=== PATIENT | male | born 1950 | race Caucasian/White ===

== ENCOUNTER 2017-05-06 14:25 | Outpatient (CLI) | payer MEDICARE, BC | END 2017-05-06 14:26 | disposition home or self-care (01) | LOC: SC 14:25 | PROVIDERS: ATTEND Internal Medicine Pulmonary Disease | DX: G47.33 Obstructive sleep apnea (adult) (pediatric) (principal) | CPT/HCPCS: 99203; G0463; 99212 ==

== ENCOUNTER 2017-06-30 09:28 | Outpatient (CLI) | payer MEDICARE, BC | END 2017-06-30 09:29 | disposition home or self-care (01) | LOC: SC 09:28 | PROVIDERS: ATTEND Internal Medicine Pulmonary Disease | DX: G47.33 Obstructive sleep apnea (adult) (pediatric) (principal) | CPT/HCPCS: 99213; G0463; 99212 ==

== ENCOUNTER 2017-08-05 10:12 | Outpatient (CLI) | payer MEDICARE, BC | END 2017-08-05 10:13 | disposition home or self-care (01) | LOC: SC 10:12 | PROVIDERS: ATTEND Internal Medicine Pulmonary Disease | DX: G47.33 Obstructive sleep apnea (adult) (pediatric) (principal) | CPT/HCPCS: 99213; G0463; 99212 ==

== ENCOUNTER 2018-03-09 14:06 | Outpatient (CLI) | payer MEDICARE, BC | END 2018-03-09 14:07 | disposition home or self-care (01) | LOC: SC 14:06 | PROVIDERS: ATTEND Internal Medicine Pulmonary Disease | DX: G47.33 Obstructive sleep apnea (adult) (pediatric) (principal) | CPT/HCPCS: 99213; G0463; 99212 ==

== ENCOUNTER 2019-03-17 14:07 | Outpatient (CLI) | payer MEDICARE, OTHER ==
[2019-03-17 15:09] VITALS: BP 134/66
--- NOTE | 2019-03-17 15:09 | SLEEP CARE CONSULTATION ---
Information from patient questionnaire entered by Anca Wharton. I have reviewed and concur with the information entered by Anca Wharton. This document represents the service I personally performed and the decisions made by me, Rhiannon Avila, RN, MSN, WILDLIFE BIOLOGY TECHNICIAN. History of Present Illness Previous diagnosis: Very Severe, Obstructive Sleep Apnea-Hypopnea Syndrome AHI: 61.2 Reason for follow up: annual (last seen 2019) Equipment type: CPAP Equipment obtained from: [employer] (getting equipment well now) Mask style: Nasal (Dreamwear) Mask brand: Respironics Backup mask available: Yes Last cushion change: 2 weeks ago CPAP Compliance Data - Data Reviewed with Patient Average duration of nightly device use: 9.3 Compliance rate %: 100 (180 days) Current pressure setting (cmH2O): 11 Humidity settin Heated hose settin Average residual AHI: 6.9 Central apnea: 1.7 Obstructive apnea: 4.1 Hypopnea: 1.1 Average large leak: 38 min 48 sec Subjective Patient concerns: reports: nasal congestion (chronic and can notice effect on CPAP use ). denies: aerophagia, mask discomfort, air blowing in eyes, mask leak noise, condensation in mask/hose, dry mouth, nose, throat, epistaxis Observed to snore while using device: No Current pressure setting perceived as: comfortable On therapy, patient: reports: sleeping better, awakening more refreshed, being more awake and alert during the day, more rested overall. denies: drowsiness while driving Initial [place] Sleepiness Scale score: 7 Current [place] Sleepiness Scale score: 5 Allergies and Home Medications Known drug allergies: No Home medication list reviewed: Yes (see changes) Review of Systems Review of systems same as previous: No (menieres disease) Physical Exam Blood Pressure: 134/66 Heart Rate: 72 O2 Saturation: 96 Height: 5 ft 8 in Weight: 222 lb 6.4 oz Weight change since last visit: lost 6 pounds Body Mass Index: 33.7 BMI Classification: Obesity Class 1 Impression and Plan 1. Obstructive Sleep Apnea-Hypopnea Syndrome, severe , with good treatment compliance and slightly elevated residual AHI on current pressure of [id number].On CPAP therapy, the patient has better sleep quality and is more rested overall. Thus I will change him to autoCPAP pressure at [id number] to reduce residual AHI. He is to contact me if the pressure change is uncomfortable. He has also lost 6 pounds. I discussed how significant weight loss will reduce his apnea and CPAP pressure requirements as well as health risks. Patient stated he is not planning on losing significant weight and is aware how to lose weight and health risks of obesity. Nasal congestion can be reduced with increasing the CPAP humidity as shown on sample device. The heated hose can be adjusted higher if condensation with higher humidity setting. Saline nasal spray sample was also given to use prior to CPAP to clear nasal secretions and wash off any nasal aneesh rgens to facilitate nasal breathing. In addition, a steamy shower before bed will often assist nasal drainage. Patient's apnea severity and rationale for treatment to reduce apnea, improve sleep quality and reduce cardiovascular and cerebrovascular events was reviewed. I also reviewed the benefit of consistent device use of CPAP for hypertension. * Change CPAP pressure to 12-14 cmH2O * Implement methods to reduce nasal congestion. * Notify me if snoring with mask or feeling that the pressure is too much or too little * Attempt to lose weight * Call this office if any problems using CPAP * Return for follow up in 1 year , or sooner if concerns arise Time Spent with Patient (minutes): 27 I spent 100% of this visit face to face with the patient with greater than 50% of this was spent time counseling the patient and coordination of care.
== END 2019-03-17 14:08 | disposition home or self-care (01) ==
LOC: SC 14:07
PROVIDERS: ATTEND Nurse Practitioner Family
DX: G47.33 Obstructive sleep apnea (adult) (pediatric) (principal); E66.9 Obesity, unspecified; Z68.33 Body mass index [BMI] 33.0-33.9, adult
CPT/HCPCS: 99214; G0463; 99212

== ENCOUNTER 2020-03-20 13:45 | Outpatient (CLI) | payer MEDICARE, OTHER ==
--- NOTE | 2020-03-20 14:45 | SLEEP CARE CONSULTATION ---
Information from patient questionnaire entered by Terrell Velazquez. I have reviewed and concur with the information entered by Terrell Velazquez. This document represents the service I personally performed and the decisions made by me, Ramu Moreno MD, [facility]. History of Present Illness Service Date and Time: 03/20/2020 1345 Previous diagnosis: Very Severe, Obstructive Sleep Apnea-Hypopnea Syndrome AHI: 61.2 Reason for follow up: annual (Last seen 03/2019) Equipment type: CPAP Equipment obtained from: [employer] Mask style: Nasal pillows Year and Where: 2014 [facility] Type of Sleep Study: Polysomnography HPI additional information: HPI: Mr. Castro returns today to follow up on the nasal CPAP therapy. He was diagnosed to have severe obstructive sleep apnea-hypopnea syndrome. The patient wears a Respironics Dreamwear nasal cushion mask. He reports using the device nightly and all through the night. The compliance report shows usage in 178 nights out of the past 180 nights, averaging 9.6 hours a night. The > 4 hour compliance rate for the past 30 days is 98.9%. He complained of no particular problem with the device such as soreness on the face, dry nose, epistaxis, nasal congestion or headache. He thinks that the pressure of 12 14 cmH2O is comfortable. On the CPAP therapy he notices improvement in his sleep quality, and that he wakes up feeling fresher in the morning and more awake/alert during the day. His notices no snore at all. The average residual AHI is 7.4; and average time in large leak per day is 51 minutes. The 90th percentile pressure is 13.7 cmH2O. CPAP Compliance Data - Data Reviewed with Patient Average duration of nightly device use: 9 h 41 min Compliance rate %: 98.3 Current pressure setting (cmH2O): 12-14 Humidity settin Heated hose settin Average residual AHI: 7.4 Average large leak: 51 min 33 sec Subjective Patient concerns: reports: mask leak noise Initial [place] Sleepiness Scale score: 7 (in 2018) Current [place] Sleepiness Scale score: 4 Allergies and Home Medications Drug allergies reviewed: Yes Home medication list reviewed: Yes Review of Systems Review of systems same as previous: Yes Physical Exam Height: 5 ft 8 in Weight: 230 lb Body Mass Index: 34.9 BMI Classification: Obese Impression and Plan IMPRESSION: 1. Obstructive Sleep Apnea-Hypopnea Syndrome, severe (AHI was 59 in 2015), with the patient doing well on nasal CPAP therapy. He has excellent compliance and significant clinical improvement. The current pressure appears comfortable but slightly ineffective. His mask leaks slightly. Overall, he is very satisfied with treatment and plans to continue with it long-term. Because the residual AHI is still high, I will raise the pressure further to 12 17 cmH2O. PLAN: 1. autoCPAP raised to 12 - 17 cmH2O. 2. Try to lose weight 3. Try ResMed N30i nasal mask. 4. Return for a follow up in 2 months to recheck the residual AHI. If still high, a manual CPAP/BiPAP titration study will be ordered. Visit Type: In Office Time Spent with Patient (minutes): 20 Provider Statement: I spent 100% of the Face to Face Visit with the patient with greater than 50% spent counseling the patient and coordination of care.
== END 2020-03-20 13:46 | disposition home or self-care (01) ==
LOC: SC 13:45
PROVIDERS: ATTEND Internal Medicine Pulmonary Disease
DX: G47.33 Obstructive sleep apnea (adult) (pediatric) (principal); E66.9 Obesity, unspecified; Z68.34 Body mass index [BMI] 34.0-34.9, adult
CPT/HCPCS: 99213; G0463; 99212

== ENCOUNTER 2020-05-22 13:41 | Outpatient (CLI) | payer MEDICARE, OTHER ==
--- NOTE | 2020-05-22 16:32 | SLEEP CARE CONSULTATION ---
Information from patient questionnaire entered by Terrell Velazquez. I have reviewed and concur with the information entered by Terrell Velazquez. This document represents the service I personally performed and the decisions made by me, Ramu Moreno MD, [facility]. History of Present Illness Service Date and Time: 05/22/2020 1341 Previous diagnosis: Very Severe, Obstructive Sleep Apnea-Hypopnea Syndrome AHI: 61.2 Reason for follow up: other (2-month f/u - pressure change) Equipment type: CPAP Equipment obtained from: [employer] Mask style: Nasal pillows Year and Where: [address] [facility] HPI additional information: HPI: Mr. Castro returned today for follow up of nasal CPAP therapy. He was diagnosed to have severe obstructive sleep apnea-hypopnea syndrome. [facility] He now wears the Respironics DreamWear nasal cushion mask. He reports using the device nightly and all through the night. The compliance report shows usage in 60 nights out of the past 60 nights, averaging 8.7 hours a night. He complained of no particular problem with the device such as soreness on the face, dry nose, epistaxis, nasal congestion or headache. He thinks that the pressure of 12 - 17 cmH2O is comfortable (the was raised two months ago for elevated residual AHI). On the CPAP therapy he notices improvement in his sleep quality, and that he wakes up feeling fresher in the morning and more awake/alert during the day. The [place] Sleepiness Scal e score 0 (was 5). His notices no snore at all. The average residual AHI is 6.6 (was 7.4); and air leak, 21 minutes a night. CPAP Compliance Data - Data Reviewed with Patient Average duration of nightly device use: 8 h 45 sahil Compliance rate %: 100 Current pressure setting (cmH2O): 12-17 Humidity settin Heated hose settin Average residual AHI: 6.6 Average large leak: 21 min 48 sec Subjective Patient concerns: reports: mask leak noise, dry mouth, nose, throat Initial [place] Sleepiness Scale score: 7 (in 2013) Current [place] Sleepiness Scale score: 0 Allergies and Home Medications Drug allergies reviewed: Yes Home medication list reviewed: Yes Review of Systems Review of systems same as previous: Yes Physical Exam Height: 5 ft 8 in Weight: 231 lb Body Mass Index: 35.1 BMI Classification: Obese Impression and Plan IMPRESSION: 1. Obstructive Sleep Apnea-Hypopnea Syndrome, severe, with the patient doing well on nasal CPAP therapy. He continues to have excellent compliance and significant clinical improvement. The current pressure appears more effective and comfortable. Overall, he is very satisfied with treatment and plans to continue with it long-term. I will raise the pressure further. PLAN: 1. Increase autoCPAP to 13 - 19 cmH2O. 2. Try to lose weight 3. Try Respironics DreamWear nasal pillows and ResMed P30i nasal pillows, 4. Return in one year for follow up or earlier if there is any problem with the treatment. Follow up recommended for: Weight management Visit Type: In Office Time Spent with Patient (minutes): 20 Provider Statement: I spent 100% of the Face to Face Visit with the patient with greater than 50% spent counseling the patient and coordination of care.
== END 2020-05-22 13:42 | disposition home or self-care (01) ==
LOC: SC 13:41
PROVIDERS: ATTEND Internal Medicine Pulmonary Disease
DX: G47.33 Obstructive sleep apnea (adult) (pediatric) (principal); E66.9 Obesity, unspecified; Z68.35 Body mass index [BMI] 35.0-35.9, adult
CPT/HCPCS: 99213; G0463; 99212

== ENCOUNTER 2021-05-07 14:26 | Outpatient (CLI) | payer MEDICARE, OTHER ==
[2021-05-07 21:58] VITALS: BP 125/83
--- NOTE | 2021-05-07 21:58 | SLEEP CARE CONSULTATION ---
Information from patient questionnaire entered by Lavelle Lima MA. I have reviewed and concur with the information entered by Lavelle Lima MA. This document represents the service I personally performed and the decisions made by me, Ramu Moreno MD, [facility]. History of Present Illness Service Date and Time: 05/07/2021 1426 Previous diagnosis: Very Severe, Obstructive Sleep Apnea-Hypopnea Syndrome AHI: 61.2 Reason for follow up: annual (LAST SEEN 04/2020,) Equipment type: CPAP Equipment obtained from: [employer] Mask style: Nasal pillows Year and Where: 2017 and 2014 [facility] Type of Sleep Study: Polysomnography HPI additional information: Mr. Castro returns today to follow up on the nasal CPAP therapy. He was diagnosed to have severe obstructive sleep apnea-hypopnea syndrome. The patient wears a Respironics Dreamwear nasal cushion mask. He reports using the device nightly and all through the night. The compliance report shows usage in 120 nights out of the past 120 nights, averaging 9.6 hours a night. The > 4 hour compliance rate for the past 120 days is 99%. He complained of no particular problem with the device such as soreness on the face, dry nose, epistaxis, nasal congestion or headache. He thinks that the pressure of 13 - 19 cmH2O is comfortable. On the CPAP therapy he notices improvement in his sleep quality, and that he wakes up feeling fresher in the morning and more awake/alert during the day. His notices no snore at all. The average residual AHI is 7.7; and average time in large leak per day is 1.6 hours. The 90th percentile pressure is 15.2 cmH2O. Sleep Study - Results Type of Sleep Study: Polysomnography Year and Where: 2017 and 2014 [facility] CPAP Compliance Data - Data Reviewed with Patient Average duration of nightly device use: 9 HOURS 12 MINUTES Compliance rate %: 99.2 Current pressure setting (cmH2O): 13-19 Humidity settin Heated hose settin Average residual AHI: 7.7 Average large leak: 1 HOUR 38 MINUTES Subjective Patient concerns: reports: mask leak noise, nasal congestion, dry mouth, nose, throat Current pressure setting perceived as: comfortable Initial [place] Sleepiness Scale score: 7 (in 2013) Current [place] Sleepiness Scale score: 0 (2021) Allergies and Home Medications Drug allergies reviewed: Yes Home medication list reviewed: Yes Allergy and home medication list: Allergies No Known Drug Allergies Allergy (Unverified 04/27/15 08:34) Review of Systems Review of systems same as previous: Yes Physical Exam Vital signs obtained and entered by: STEVEN HAMPTON Blood Pressure: 125/83 (RIGHT, PULSE 67, RESP 18, ) Cuff size: wrist Heart Rate: 64 O2 Saturation: 98 (PAPER MASK) Height: 5 ft 8 in Weight: 216 lb Body Mass Index: 32.8 BMI Classification: Obese Impression and Plan IMPRESSION: 1. Obstructive Sleep Apnea-Hypopnea Syndrome, severe (AHI was 59 in 2014), with the patient doing well on nasal CPAP therapy. He has excellent compliance and significant clinical improvement. The current pressure appears comfortable but still slightly ineffective. His mask leaks more now. He has registered his DreamStation device with its client analyst for replacement. He would like to be evaluated for the Inspire therapy (hypoglossal nerve stimulation). PLAN: 1. Continue with autoCPAP s cmH2O.et at 13 19 cmH2O. 2. The patient was recommended to see Dr. Brody Pereyra (ENT) in [place] regarding the Inspire Therapy. 3. Return for follow up in a year or earlier if there is any problem or if he decides to have the procedure. Follow up with Sleep Care in: 1 year Follow up with: Other (ENT) Visit Type: In Office Time Spent with Patient (minutes): 15 Provider Statement: I spent 100% of the Face to Face Visit with the patient with greater than 50% spent counseling the patient and coordination of care.
== END 2021-05-07 14:27 | disposition home or self-care (01) ==
LOC: SC 14:26
PROVIDERS: ATTEND Internal Medicine Pulmonary Disease
DX: G47.33 Obstructive sleep apnea (adult) (pediatric) (principal); E66.9 Obesity, unspecified; Z68.32 Body mass index [BMI] 32.0-32.9, adult
CPT/HCPCS: 99212; G0463

== ENCOUNTER 2021-12-11 14:17 | Outpatient (CLI) | payer MEDICARE, OTHER ==
[2021-12-11 15:01] VITALS: BP 132/88
--- NOTE | 2021-12-11 15:01 | SLEEP CARE CONSULTATION ---
Information from patient questionnaire entered by Matty Urias. I have reviewed and concur with the information entered by Matty Urias. This document represents the service I personally performed and the decisions made by me, Blanquita Baldwin ARNP. History of Present Illness Service Date and Time: 12/11/2021 1417 Previous diagnosis: Very Severe, Obstructive Sleep Apnea-Hypopnea Syndrome AHI: 61.2 Reason for follow up: other (7 MONTH F/U, LAST SEEN 05/22) Equipment type: CPAP (DREAMSTATION) Equipment obtained from: [employer] Mask style: Nasal pillows Backup mask available: Yes (old mask) Prior sleep studies: Yes Year and Where: [address] [facility] Type of Sleep Study: Polysomnography HPI additional information: MARII SCHREIBER was diagnosed to have very severe, AHI 61.2, obstructive sleep apnea-hypopnea syndrome and returned today for CPAP therapy 7 month follow-up. Sleep Study - Results Type of Sleep Study: Polysomnography Year and Where: 2017 and 2014 [facility] CPAP Compliance Data - Data Reviewed with Patient Average duration of nightly device use: 8 hours, 59 minutes, 34 seconds Compliance rate %: 98.9 (06/13/21 to 12/09/21) Current pressure setting (cmH2O): 13-19 Average residual AHI: 7.7 Compliance data discussion: Patient received his Dreamstation 2 about 2 weeks ago but is not sure what to do with it. He is not sure if all the settings are right on his machine. He comes in to have this checked. Subjective Patient concerns: denies: aerophagia, mask discomfort, air blowing in eyes, mask leak noise, condensation in mask/hose, nasal congestion, dry mouth, nose, throat, epistaxis Observed to snore while using device: No Current pressure setting perceived as: comfortable On therapy, patient: reports: sleeping better, awakening more refreshed, being more awake and alert during the day, more rested overall. denies: drowsiness while driving Initial [place] Sleepiness Scale score: 7 (in 2013) Current [place] Sleepiness Scale score: 0 (12-11-22) Allergies and Home Medications Drug allergies reviewed: Yes (NKDA) Home medication list reviewed: Yes (no changes) Allergy and home medication list: Allergies No Known Drug Allergies Allergy (Unverified 04/27/15 08:34) Review of Systems Review of systems same as previous: Yes (no changes) Physical Exam Vital signs obtained and entered by: SARATH MATA Blood Pressure: 132/88 Heart Rate: 70 O2 Saturation: 97 Height: 5 ft 8 in Weight: 208 lb 8 oz Body Mass Index: 31.6 BMI Classification: Obese Impression and Plan 1. Obstructive Sleep Apnea-Hypopnea Syndrome, very severe, with good treatment compliance and good apnea control. On CPAP therapy, the patient has better sleep quality and is more rested overall. Patient comes in because he got his replacement Dreamstation 2 from [employer] and was not sure if it was set up for him or not. I helped patient put the machine together, showed him how to remove and replace the water chamber. The machine updated and the settings are correct for him. He voiced understanding. I will update his prescription for supplies. Patient's apnea severity and rationale for treatment to reduce apnea, improve sleep quality and reduce cardiovascular and cerebrovascular events was reviewed. I also reviewed the benefit of consistent device use of CPAP for hypertension. 2. Obesity, unspecified. Currently patients BMI is 31.6. Obesity increases the risk of apnea, CPAP pressure requirements and overall health risks especially cardiovascular and diabetes. Thus patient is advised to continue to try to lose weight. * Continue auto CPAP pressure at 13-19 cmH2O * Update supplies * Notify me if snoring with mask or feeling that the pressure is too much or too little * Attempt to lose weight * Call this office if any problems using CPAP * Return for follow up in 1 year, or sooner if concerns arise Counseling Topics: Spare mask, Weight loss health impact Visit Type: In Office Time Spent with Patient (minutes): 24 Provider Statement: I spent 100% of the Face to Face Visit with the patient with greater than 50% spent counseling the patient and coordination of care.
== END 2021-12-11 14:18 | disposition home or self-care (01) ==
LOC: SC 14:17
PROVIDERS: ATTEND Nurse Practitioner Family
DX: G47.33 Obstructive sleep apnea (adult) (pediatric) (principal); E66.9 Obesity, unspecified; Z68.31 Body mass index [BMI] 31.0-31.9, adult
CPT/HCPCS: 99213; G0463; 99212

== ENCOUNTER 2022-01-17 13:20 | Outpatient (CLI) | payer MEDICARE, OTHER ==
--- NOTE | 2022-01-17 16:22 | CT Report ---
PROCEDURE: Low Dose Lung Cancer Screen INDICATIONS: FORMER SMOKER TECHNIQUE: Noncontrast low-dose axial images were acquired from the pulmonary apices to the posterior costophren ic angles. Multiplanar MIP reformats were then reconstructed. For radiation dose reduction, the follo wing was used: automated exposure control, adjustment of mA and/or kV according to patient size. COMPARISON: None. FINDINGS: Image quality: Excellent. Lungs and pleura: 1 mm subpleural pulmonary nodule, posterior left lower lobe, possibly calcified, i mage 266/4. Mediastinum: Heart size is normal. No pericardial effusion. Mild coronary artery calcifications. No mediastinal adenopathy by size criteria. Thoracic aorta and central pulmonary arteries are normal i n size. Esophagus is normal in caliber. No hiatal hernia. Bones and chest wall: No suspicious bony lesions. No vertebral body compression fractures. No axil meera or supraclavicular adenopathy by size criteria. Thyroid is grossly unremarkable. Abdomen: Visualized upper abdomen solid organs and bowel loops appear normal in the absence of contr ast. IMPRESSION: Lung RAD: 1 - Negative. No nodules and definitely benign nodules. Recommendation: 1 - Continue annual screening with LDCT in 12 months. CLINICAL RECOMMENDATION STATEMENTS: In patients <35 years with an ITN detected on CT, MRI, or extrathyroidal ultrasound, the Committee re commends further evaluation with dedicated thyroid ultrasound if the nodule is "e1 cm and has no susp icious imaging features, and if the patient has normal life expectancy. In patients "e35 years with an ITN detected on CT, MRI, or extrathyroidal ultrasound, the Committee r ecommends further evaluation with dedicated thyroid ultrasound if the nodule is "e1.5 cm and has no s uspicious imaging features, and if the patient has normal life expectancy. (ACR, 2014) Reviewed by: Rudy Wells MD on 01/17/2022 4:21 PM PST Approved by: Rudy Wells MD on 01/17/2022 4:21 PM PST Station ID: [id number] Lung-Rad Lung-Recommendation
== END 2022-01-17 13:21 | disposition home or self-care (01) ==
LOC: DI 13:20
PROVIDERS: ATTEND Student in an Organized Health Care Education/Training Program
DX: Z12.2 Encounter for screening for malignant neoplasm of respiratory organs (principal); Z87.891 Personal history of nicotine dependence

== ENCOUNTER 2022-12-11 14:02 | Outpatient (CLI) | payer MEDICARE, OTHER ==
--- NOTE | 2022-12-11 14:28 | Sleep Patient Instructions ---
Sleep Center Visit Summary - Patient Visit Information Reason for Visit: Annual visit for PAP therapy - Patient Instructions Additional Instructions: You will continue with CPAP therapy with pressure set at 13-19 cmH2O. A supply prescription will be updated with your DME. We encourage you to continue to try to lose weight. Please follow up with the sleep care office in 1 year. - Clinic Information Contact: [facility] [address] [place] [address] [email or web address] T: [phone]
--- NOTE | 2022-12-11 14:40 | SLEEP CARE CONSULTATION ---
Information from patient questionnaire entered by Adrienne Fernandes. I have reviewed and concur with the information entered by Adrienne Fernandes. This document represents the service I personally performed and the decisions made by me, Blanquita Baldwin ARNP. History of Present Illness Service Date and Time: 12/11/2022 1402 Previous diagnosis: Very Severe, Obstructive Sleep Apnea-Hypopnea Syndrome AHI: 61.2 Reason for follow up: annual (LAST SEEN 12/2022) Equipment type: CPAP (DREAMSTATION 2) Equipment obtained from: [facility] (getting supplies as needed) Mask style: Nasal pillows Backup mask available: Yes (old mask) Last cushion change: 1 week Prior sleep studies: Yes Year and Where: 2017 and 2014 [facility] Type of Sleep Study: Polysomnography HPI additional information: MARII SCHREIBER was diagnosed to have very severe, AHI 61.2, obstructive sleep apnea-hypopnea syndrome and returned today for CPAP therapy annual follow-up. Sleep Study - Results Type of Sleep Study: Polysomnography Prior sleep studies: Yes Year and Where: 2017 and 2014 [facility] CPAP Compliance Data - Data Reviewed with Patient Average duration of nightly device use: 9 HR 5 MIN 32 SECS Compliance rate %: 100 (06/05/22-12/01/22; 180/180 days used) Current pressure setting (cmH2O): 13-19 Average residual AHI: 3.8 Central apnea: 0.6 Obstructive apnea: 1 Hypopnea: 2.2 Average large leak: 1 hour 43 mins Subjective Patient concerns: reports: nasal congestion (not just CPAP use). denies: aerophagia, mask discomfort, air blowing in eyes, mask leak noise, condensation in mask/hose, dry mouth, nose, throat, epistaxis Observed to snore while using device: No Current pressure setting perceived as: comfortable On therapy, patient: reports: sleeping better, awakening more refreshed, being more awake and alert during the day, more rested overall. denies: drowsiness while driving Initial [place] Sleepiness Scale score: 7 (in 2013) Current [place] Sleepiness Scale score: 0 (12/11/22) Allergies and Home Medications Known drug allergies: No Drug allergies reviewed: Yes Home medication list reviewed: Yes (no changes) Allergy and home medication list: Allergies No Known Drug Allergies Allergy (Unverified 12/10/22 14:47) Review of Systems Review of systems same as previous: Yes (NO CHANGE) Physical Exam Vital signs obtained and entered by: ADRIENNE Cutler MA Blood Pressure: 128/70 (LEFT ARM) Cuff size: regular Heart Rate: 82 O2 Saturation: 96 Height: 5 ft 8 in Weight: 230 lb 6.4 oz Body Mass Index: 35.0 BMI Classification: Obese Impression and Plan 1. Obstructive Sleep Apnea-Hypopnea Syndrome, very severe, with good treatment compliance and good apnea control. On CPAP therapy, the patient has better sleep quality and is more rested overall. Patient has significant improvement of their sleep apnea and is satisfied with current CPAP therapy. Patient denies problems with oral dryness, nasal congestion, epistaxis, skin irritation or aerophagia. Patient's apnea severity and rationale for treatment to reduce apnea, improve sleep quality and reduce cardiovascular and cerebrovascular events was reviewed. I also reviewed the benefit of consistent device use of CPAP for hypertension. 2. Obesity, unspecified. Currently patients BMI is 35. Obesity increases the risk of apnea, CPAP pressure requirements and overall health risks especially cardiovascular and diabetes. Thus patient is advised to try to lose weight. * Continue auto CPAP pressure at 13-19 cmH2O * Update supply prescription * Notify me if snoring with mask or feeling that the pressure is too much or too little * Attempt to lose weight * Call this office if any problems using CPAP * Return for follow up in 1 year, or sooner if concerns arise Counseling Topics: Spare mask, Weight loss health impact Prescriptions: Device supplies Follow up with Sleep Care in: 1 year Visit Type: In Office Time Spent with Patient (minutes): 23 Provider Statement: I spent 100% of the Face to Face Visit with the patient with greater than 50% spent counseling the patient and coordination of care.
[2022-12-11 14:58] VITALS: BP 128/70; O2SAT 96
== END 2022-12-11 14:03 | disposition home or self-care (01) ==
LOC: SC 14:02
PROVIDERS: ATTEND Nurse Practitioner Family
DX: G47.33 Obstructive sleep apnea (adult) (pediatric) (principal); E66.9 Obesity, unspecified; Z68.35 Body mass index [BMI] 35.0-35.9, adult
CPT/HCPCS: 99213; G0463; 99212